=== PATIENT | male | born 1960 | race Caucasian/White ===

== ENCOUNTER 2017-01-22 17:01 | Emergency (ER) | payer SELFPAY ==
[2017-01-22 17:07] VITALS: BP 168/94; PULSE 94; TEMP 98.4; BMI 41.9
[2017-01-22] MEDS ORDERED: AMOX TR/POT CLAV 875MG/125MG TABLETS (FP) PO ONE (17:14)
--- NOTE | 2017-01-22 17:20 | PDOC ---
History of Present Illness - History of Present Illness Initial Comments: 01/22/17 17:25 56 y/o M with no PMHx presents to the ED with left sided tooth pain since yesterday. Patient states part of his tooth broke off while eating two weeks ago. He reports no associated pain until yesterday. He began to experience pain at the site of the tooth and the surrounding area. He states it is painful to touch and open his mouth. He took Advil with no relief. He denies fever or chills. Denies any other complaints. <Kayla Banuelos - Last Filed: 01/22/17 17:24> <Junaid Anguiano - Last Filed: 01/25/17 07:19> - General Chief Complaint: Pain, Acute Stated Complaint: RIGHT TOOTH PAIN Time Seen by Provider: 01/22/17 17:06 Past History <Kayla Banuelos - Last Filed: 01/22/17 17:24> - Past Medical History Diabetes: Yes - Surgical History Cholecystectomy: Yes - Psycho/Social/Smoking Cessation Hx Anxiety: No Suicidal Ideation: No Smoking History: Current every day smoker Have you smoked in the past 12 months: Yes Number of Cigarettes Smoked Daily: 20 Information on smoking cessation initiated: Yes 'Breaking Loose' booklet given: 01/22/17 Hx Alcohol Use: No Drug/Substance Use Hx: No Substance Use Type: None <Junaid Anguiano - Last Filed: 01/25/17 07:19> - Past Medical History Allergies/Adverse Reactions: Allergies Allergy/AdvReac Type Severity Reaction Status Date / Time codeine Allergy Verified 01/22/17 17:02 tramadol Allergy Verified 01/22/17 17:02 Home Medications: Ambulatory Orders Amoxicillin/Potassium Clav [Augmentin 875-125 Tablet] 1 each PO BID #20 tablet 01/22/17 Oxycodone HCl/Acetaminophen [Percocet 5-325 mg Tablet -] 1 combo PO Q6H PRN #10 tablet MDD 4 01/22/17 Review of Systems - Review of Systems Comments:: 01/22/17 17:25 CONSTITUTIONAL: No reported: Fever, Chills, Diaphoresis, Generalized Weakness, Malaise, Loss of Appetite HEENT: Present: left tooth pain No reported: Rhinorrhea, Nasal Congestion, Throat Pain, Throat Swelling, Difficulty Swallowing, Mouth Swelling, Ear Pain, Eye Pain, Visual Changes CARDIOVASCULAR: No reported: Chest Pain, Syncope, Palpitations, Irregular Heart Rate, Lightheadedness, Peripheral Edema RESPIRATORY: No reported: Cough, Shortness of Breath, SOB with Exertion, Orthopnea, Wheezing , Stridor, Hemoptysis GASTROINTESTINAL: No reported: Abdominal pain, Abdominal Distension, Nausea, Vomiting, Diarrhea, Constipation, Melena, Hematochezia GENITOURINARY: No reported: Dysuria, Frequency, Urgency, Hesitancy, Flank Pain, Genital Pain MUSCULOSKELETAL: No reported: Myalgia, Arthralgia, Joint Swelling, Back pain, Neck Pain SKIN: No reported: Rash, Itching, Pallor HEMATOLOGIC/IMMUNOLOGIC: No reported: Easy Bleeding, Easy Bruising, Lymphadenopathy, Frequent infections ENDOCRINE: No reported: Unexplained Weight Gain, Unexplained Weight Loss, Heat Intolerance , Cold Intolerance NEUROLOGIC: No reported: Headache, Focal Weakness, Paresthesias, Vertigo, Lightheadedness, Unsteady Gait, Seizure, Mental Status Changes, Incontinence PSYCHIATRIC: No reported: Anxiety, Depression <Kayla Banuelos - Last Filed: 01/22/17 17:24> *Physical Exam - Vital Signs Last Vital Signs Temp Pulse Resp BP Pulse Ox 98.4 F 94 H 18 168/94 96 01/22/17 17:02 01/22/17 17:02 01/22/17 17:02 01/22/17 17:02 01/22/17 17:02 <Kayla Banuelos - Last Filed: 01/22/17 17:24> - Vital Signs Last Vital Signs Temp Pulse Resp BP Pulse Ox 98.4 F 94 H 18 168/94 96 01/22/17 17:02 01/22/17 17:02 01/22/17 17:02 01/22/17 17:02 01/22/17 17:02 - Physical Exam Comments: 01/22/17 19:05 GENERAL: The patient is awake, alert, and fully oriented, Nontoxic - in no acute distress. HEAD: Normocephalic, atraumatic. EYES: extraocular movements intact, sclera anicteric, conjunctiva clear. ENT: Normal voice, Moist mucous membranes, no massess/erythema, +fractured R upper canine, no surrounding erythema, fluctuance, induration, no facial swelling. no ulcerations noted. NECK: Normal range of motion, supple, no cerfical lymphadenopathy <Junaid Anguiano - Last Filed: 01/25/17 07:19> Medical Decision Making - Medical Decision Making 01/22/17 17:18 56y M no pmhx presents with dental pain. Pt states he broke a tooth when eating a bagal, he was asypmtomatic until yesterday when he started to have pain in his mouth. Pt denies any fever/chills, swelling. on exam pt has poor dentition, but is in generally well appearing. he has a fractured canine, there is no erythema, induration, fluctuance notable to suggest abscess. will give pt augmentin, percocet and will refer pt to [facility]. return precautions were given for worsening symptoms including symptoms of absscess. I discussed the physical exam findings, ancillary test results and final diagnoses with the patient. I answered all of the patient's questions. The patient was satisfied with the care received and felt comfortable with the discharge plan and treatment plan. The patient will call their primary care physician within 24 hours to arrange follow-up and will return to the Emergency Department with any new, persistent or worsening symptoms. A portion of this note was documented by scribe services under my direction. I have reviewed the details of the note, within reason, and agree with the documentation with the following case summary and management plan written by me <Junaid Anguiano - Last Filed: 01/25/17 07:19> *DC/Admit/Observation/Transfer - Attestations Scribe Attestion: 01/22/17 17:25 Documentation prepared by Kayla Banuelos, acting as medical charge entry specialist for Junaid Anguiano MD. <Kayla Banuelos - Last Filed: 01/22/17 17:24> - Discharge Dispostion Admit: No <Junaid Anguiano - Last Filed: 01/25/17 07:19> Diagnosis at time of Disposition: Pain, dental Fractured tooth Qualifiers: Encounter type: initial encounter Fracture type: open Qualified Code(s): S02.5XXB - Fracture of tooth (traumatic), initial encounter for open fracture - Discharge Dispostion Disposition: HOME Condition at time of disposition: Stable - Prescriptions Prescriptions: Amoxicillin/Potassium Clav [Augmentin 875-125 Tablet] 1 each PO BID #20 tablet Oxycodone HCl/Acetaminophen [Percocet 5-325 mg Tablet -] 1 combo PO Q6H PRN #10 tablet MDD 4 PRN Reason: Pain - Referrals Referrals: Paresh Martin MD [Primary Care Provider] - Dental, Urgent Care [Other] - Patient Instructions Printed Discharge Instructions: DI for Fractured Tooth Additional Instructions: Return to the emergency department immediately with ANY new, persistent or worsening symptoms including fevers/chills, sever pain, or other concerns. You must see a dentist for definitive care of your tooth ache. You can proceede to Urgent Care Dental, it hsould still be open now. You MUST call and follow up with your doctor tomorrow for further evaluation of your symptoms. Results were discussed with you. Please make sure your doctor reviews the results of your emergency evaluation. Print Language: URDU
[2017-01-22] MEDS ORDERED: AMOX TR/POT CLAV 875MG/125MG TABLETS (FP) ONE (17:24)
== END 2017-01-22 17:29 | disposition home or self-care (01) ==
LOC: FER 17:01
DX: K08.89 Other specified disorders of teeth and supporting structures (principal); S02.5XXB Fracture of tooth (traumatic), initial encounter for open fracture; F17.210 Nicotine dependence, cigarettes, uncomplicated; E11.9 Type 2 diabetes mellitus without complications
CPT/HCPCS: 99282-25

== ENCOUNTER 2024-10-07 06:19 | Inpatient (IN) | payer OTHER ==
[2024-10-05 09:32] VITALS: BMI 35.5
[2024-10-07] MEDS ORDERED: HEPARIN NA (PORCINE) 5,000 UNITS/ML 1ML VIAL ONE ×2 (07:18→08:55)
[2024-10-07] MEDS ORDERED: LIDOCAINE HCL 1%, 10 MG/ML (20ML VIAL) ONE (07:18)
[2024-10-07] MEDS ORDERED: LIDOCAINE HCL/PF 2% SDV 5ML VIAL ONE (07:57)
[2024-10-07] MEDS ORDERED: SUCCINYLCHOLINE CHLORIDE 200 MG/10 ML SYRINGE ONE (07:58)
[2024-10-07] MEDS ORDERED: PROPOFOL 40 ML ONE (07:58)
[2024-10-07] MEDS ORDERED: MIDAZOLAM HCL 2 MG/2 ML SINGLE DOSE VIAL ONE (07:58)
[2024-10-07] MEDS ORDERED: ROCURONIUM BROMIDE 50 MG/5 ML SYRINGE ONE ×3 (07:58→10:08)
[2024-10-07] MEDS ORDERED: BENZOIN/ALOE VERA/STORAX/TOLU 58 ML BOTTLE ONE (08:21)
[2024-10-07] MEDS: ceFAZolin SODIUM 1 GM VIAL IVPB ONE (08:25)
[2024-10-07] MEDS ORDERED: SUGAMMADEX SODIUM 200 MG/2 ML VIAL ONE (10:09)
[2024-10-07] MEDS ORDERED: PROTAMINE SULFATE 50 MG/5 ML VIAL ONE (10:35)
[2024-10-07] MEDS ORDERED: ONDANSETRON 4 MG/2 ML VIAL ONE (10:57)
[2024-10-07] MEDS ORDERED: DEXAMETHASONE SOD PHOSPHATE 4 MG/1 ML VIAL ONE (10:57)
[2024-10-07] MEDS ORDERED: ONDANSETRON 4 MG/2 ML VIAL IVPUSH PRN (11:05)
[2024-10-07] MEDS: ALBUTEROL SO4 2.5/IPRATROPIUM 0.5 INH SOL 3 ML VIAL.NEB. NEB ONE (11:06)
[2024-10-07] MEDS: LACTATED RINGERS SOLUTION 1,000 ML IV SCH (15:03)
[2024-10-07 16:30] LABS: ABSOLUTE IMMATURE GRANULOCYTES 0.03 x10^3/uL (0.0-0.031); EOSINOPHIL % 0.1 % (0.8-7.0); EOSINOPHILS # 0.01 x10^3/uL (0.04-0.54); HEMATOCRIT 30.4 % (40.1-51.0); HEMOGLOBIN 9.6 g/dL (13.7-17.5); MCHC 31.6 g/dl (32.3-36.5); MEAN CELL VOLUME 94.4 fl (79.0-92.2); MEAN PLT VOLUME 11.2 fl (9.4-12.4); MONOCYTE # 0.19 x10^3/uL (0.30-0.82); MONOCYTE % 2.4 % (5.3-12.2); PLATELET COUNT 180 x10^3/uL (163-337)
[2024-10-07 16:42] LABS: POTASSIUM 3.9 mmol/L (3.5-5.1)
[2024-10-07 16:46] LABS: ALBUMIN 2.3 g/dl (3.4-5.0); CALCIUM 8.2 mg/dL (8.5-10.1)
[2024-10-07 16:47] LABS: BLOOD UREA NITROGEN 12.3 mg/dL (7-18); MAGNESIUM 1.4 mg/dL (1.8-2.4)
[2024-10-07 16:50] LABS: CREATININE 0.5 mg/dL (0.55-1.3)
[2024-10-07 16:51] LABS: BILIRUBIN,TOTAL 0.5 mg/dL (0.2-1); TOT PROT 5.2 g/dl (6.4-8.2)
[2024-10-07] MEDS ORDERED: MAGNESIUM SULF 50% (8.12 MEQ/2 ML-1 GM VIAL) ONE (18:31)
[2024-10-07] MEDS: MAGNESIUM SULF 50% (8.12 MEQ/2 ML-1 GM VIAL) IVPB ONE (18:43)
[2024-10-07] MEDS: INSULIN ASPART SLIDING SCALE (NOVOLOG) 1 VIAL SQ SCH (18:44)
[2024-10-07] MEDS: metFORMIN HCL 500 MG TABLET (FP) PO SCH (18:44)
[2024-10-07] MEDS: MUPIROCIN 2% TOPICAL OINTMENT FOR DECOLONIZATION NS SCH (21:26)
[2024-10-07] MEDS: CHLORHEXIDINE GLUCONATE 4% CLEANSER FOR DECOLONIZATION TP SCH (21:26)
[2024-10-07] MEDS: ATORVASTATIN CA 20 MG TABLET (FP) PO SCH (21:26)
[2024-10-07] MEDS: GABAPENTIN 100 MG CAPSULE PO SCH (21:26)
[2024-10-07] MEDS: CEFAZOLIN 2 GM/D5W 2 GM/50 ML ML IVPB SCH (21:27)
[2024-10-07] MEDS: ACETAMINOPHEN 325 MG TABLET (FP) PO PRN (21:37)
[2024-10-07] MEDS: oxyCODONE HCL 5 MG TABLET PO PRN (21:37)
[2024-10-08] MEDS: EMPAGLIFLOZIN (JARDIANCE) 25 MG TABLET PO SCH (06:17)
[2024-10-08 06:53] LABS: POTASSIUM 3.8 mmol/L (3.5-5.1)
[2024-10-08 06:55] LABS: ALBUMIN 1.9 g/dl (3.4-5.0); BLOOD UREA NITROGEN 7.6 mg/dL (7-18); CALCIUM 8.3 mg/dL (8.5-10.1); MAGNESIUM 1.5 mg/dL (1.8-2.4)
[2024-10-08 06:58] LABS: CREATININE 0.4 mg/dL (0.55-1.3); PHOSPHOROUS 2.4 mg/dL (2.5-4.9)
[2024-10-08 06:59] LABS: BILIRUBIN,TOTAL 0.4 mg/dL (0.2-1)
[2024-10-08] MEDS ORDERED: glipiZIDE-XL 10 MG TAB.ER.24 (FP) PO SCH (07:00)
[2024-10-08 07:01] LABS: TOT PROT 4.4 g/dl (6.4-8.2)
[2024-10-08 08:08] LABS: ABSOLUTE IMMATURE GRANULOCYTES 0.04 x10^3/uL (0.0-0.031); BASOPHILS # 0.02 x10^3/uL (0.01-0.08); EOSINOPHIL % 0.5 % (0.8-7.0); EOSINOPHILS # 0.05 x10^3/uL (0.04-0.54); HEMATOCRIT 28.1 % (40.1-51.0); MEAN CELL VOLUME 94.3 fl (79.0-92.2); MEAN PLT VOLUME 11.5 fl (9.4-12.4); MONOCYTE % 8.1 % (5.3-12.2); PLATELET COUNT 180 x10^3/uL (163-337); RDW 13.8 % (12.2-16.4)
[2024-10-08] MEDS: MAGNESIUM SULF 50% (8.12 MEQ/2 ML-1 GM VIAL) IVPB ONE (09:03)
[2024-10-08] MEDS: NAPH,MB-DB/K PH,MBDB POWDER PACKET PO ONE (09:03)
[2024-10-08] MEDS: PANTOPRAZOLE 40 MG TABLET PO SCH (09:03)
[2024-10-08] MEDS: ENOXAPARIN NA (PORCINE) 40 MG/0.4 ML DISP.SYRIN SQ SCH (09:05)
[2024-10-08 11:37] VITALS: PULSE 66; RESP 16; TEMP 97.8
[2024-10-08 13:11] VITALS: BP 130/85
== END 2024-10-08 12:30 | disposition home or self-care (01) | DRG 181 ==
LOC: J2C 06:19 → JICU 13:29
PROVIDERS: ADMIT Surgery; ATTEND Surgery
PROC: 047D341 Dilation of Left Common Iliac Artery with Drug-eluting Intraluminal Device, using Drug-Coated Balloon, Percutaneous Approach (ICD-10-PCS; 2024-10-07)
PROC: 04FD3ZZ Fragmentation of Left Common Iliac Artery, Percutaneous Approach (ICD-10-PCS; 2024-10-07)
PROC: 04FC3ZZ Fragmentation of Right Common Iliac Artery, Percutaneous Approach (ICD-10-PCS; 2024-10-07)
PROC: 047C341 Dilation of Right Common Iliac Artery with Drug-eluting Intraluminal Device, using Drug-Coated Balloon, Percutaneous Approach (ICD-10-PCS; principal; 2024-10-07 08:00)
DX: I77.9 Disorder of arteries and arterioles, unspecified (principal); I77.1 Stricture of artery; E11.621 Type 2 diabetes mellitus with foot ulcer; I74.5 Embolism and thrombosis of iliac artery; E11.51 Type 2 diabetes mellitus with diabetic peripheral angiopathy without gangrene; E78.5 Hyperlipidemia, unspecified; J44.9 Chronic obstructive pulmonary disease, unspecified; L89.623 Pressure ulcer of left heel, stage 3
CPT/HCPCS: 36415; 36430; 76000-TC-FY; 80053; 82962; 83735; 84100; 85025; 86900; 86922; 94010; 94640; 94760; C1760; C1769; C1894; J1644

== ENCOUNTER 2024-11-26 18:55 | Inpatient (IN) | payer OTHER ==
[2024-11-26] MEDS: LACTATED RINGERS SOLUTION 1000 ML INFUS.BAG IV ONE (19:50)
[2024-11-26] MEDS: ACETAMINOPHEN 1000 MG/100 ML BAG IVPB ONE (20:36)
[2024-11-26] MEDS ORDERED: ACETAMINOPHEN INJECTION 100 ML ONE (20:51)
[2024-11-26 20:59] LABS: ABSOLUTE IMMATURE GRANULOCYTES 0.34 x10^3/uL (0.0-0.031); BASOPHILS # 0.03 x10^3/uL (0.01-0.08); EOSINOPHIL % 0.0 % (0.8-7.0); EOSINOPHILS # 0.00 x10^3/uL (0.04-0.54); MCHC 31.6 g/dl (32.3-36.5); MEAN CELL VOLUME 91.8 fl (79.0-92.2); MEAN PLT VOLUME 11.0 fl (9.4-12.4); MONOCYTE # 1.56 x10^3/uL (0.30-0.82); MONOCYTE % 6.3 % (5.3-12.2); RDW 15.0 % (12.2-16.4)
[2024-11-26 21:08] LABS: INR 1.11 (0.83-1.09); PROTHROMBIN TIME (PATIENT) 12.2 SEC (9.7-13.0)
[2024-11-26 21:11] LABS: ACTIVATED PTT 30.4 SECONDS (25.2-36.5)
[2024-11-26 21:17] LABS: BG HCT 36.0 % (35.4-49); VENOUS BASE EXCESS 1.2 mmol/L (-2-2); VENOUS O2 SATURATION 33.2 % (70-80); VENOUS PCO2 48.4 mmHg (38-52); VENOUS PH 7.366 (7.310-7.410)
[2024-11-26] MEDS: PIPERACILLIN/TAZOB 4.5 GM 4.5 GM in DEXTROSE 5%-WATER 100 ML IVPB ONE (21:30)
[2024-11-26 21:43] LABS: CO2 27.0 mmol/L (21-32)
[2024-11-26 21:44] LABS: GLUCOSE,RANDOM 90.0 mg/dL (74-106)
[2024-11-26 21:47] LABS: CREATININE 0.9 mg/dL (0.55-1.3); SGOT/AST 28.0 U/L (15-37); SGPT/ALT 32.0 U/L (13-61)
[2024-11-26 21:48] LABS: TOT PROT 6.5 g/dl (6.4-8.2)
[2024-11-26 21:49] LABS: ALK PHOS 139.0 U/L (45-117)
[2024-11-26] MEDS ORDERED: PIPERACILLIN/TAZOB 4.5 GM 4.5 GM/100 ML BAG IVPB ONE (22:17)
[2024-11-26] MEDS: VANCOMYCIN 1,000 MG in DEXTROSE 5%-WATER - 250 ML IVPB ONE (22:43)
[2024-11-26] MEDS ORDERED: VANCOMYCIN 1 GM PREMIX (F) 1 GM/200 ML BAG ONE (22:44)
[2024-11-26] MEDS: HALOPERIDOL LACTATE 5 MG/ML IM ONE (23:18)
[2024-11-26] MEDS ORDERED: NICOTINE 14 MG/24 HOURS TOPICAL PATCH TD ONE (23:19)
[2024-11-26] MEDS ORDERED: HALOPERIDOL LACTATE 5 MG/ML ONE (23:19)
[2024-11-26] MEDS: NICOTINE 14 MG/24 HOURS TOPICAL PATCH TD SCH (23:44)
[2024-11-27 00:06] LABS: URINE APPEARANCE CLEAR; URINE BILIRUBIN NEGATIVE (NEGATIVE); URINE COLOR YELLOW; URINE GLUCOSE (UA) 500 mg/dl (NEGATIVE); URINE KETONE NEGATIVE (NEGATIVE); URINE LEUK ESTERASE NEGATIVE (NEGATIVE); URINE NITRITE NEGATIVE (NEGATIVE); URINE PROTEIN 300 (NEGATIVE); URINE UROBILINOGEN 1.0 mg/dL (0.2-1.0)
[2024-11-27] MEDS: VANCOMYCIN 1 GM PREMIX (F) 1 GM/200 ML BAG IVPB SCH (04:22)
[2024-11-27] MEDS ORDERED: ATORVASTATIN CA 20 MG TABLET (FP) ONE (09:31)
[2024-11-27] MEDS ORDERED: NICOTINE 14 MG/24 HOURS TOPICAL PATCH TD ONE (09:32)
[2024-11-27] MEDS ORDERED: ENOXAPARIN NA (PORCINE) 40 MG/0.4 ML DISP.SYRIN SQ ONE (09:32)
[2024-11-27] MEDS ORDERED: ASPIRIN COATED 81 MG TABLET.EC ONE (09:32)
[2024-11-27] MEDS: ENOXAPARIN NA (PORCINE) 40 MG/0.4 ML DISP.SYRIN SQ SCH (09:57)
[2024-11-27] MEDS: ATORVASTATIN CA 20 MG TABLET (FP) PO SCH (09:57)
[2024-11-27] MEDS: EMPAGLIFLOZIN (JARDIANCE) 25 MG TABLET PO SCH (09:57)
[2024-11-27] MEDS: ASPIRIN COATED 81 MG TABLET.EC PO SCH (09:57)
[2024-11-27] MEDS: AMPICILLIN NA/SULBACTAM NA 3 GM in SODIUM CHLORIDE 100 ML IVPB SCH (11:26)
[2024-11-27] MEDS: VANCOMYCIN/WATER 1250 MG 1,250 MG/250 ML BAG IVPB SCH (11:26)
[2024-11-27] MEDS: CLOPIDOGREL BISULFATE 75 MG TABLET (FP) PO SCH (11:27)
[2024-11-27] MEDS ORDERED: AMPICILLIN NA/SULBACTAM NA 3 GM VIAL ONE (15:12)
[2024-11-27 15:41] VITALS: BMI 38.8
[2024-11-28 01:46] VITALS: RESP 18
[2024-11-28] MEDS: ACETAMINOPHEN 1000 MG/100 ML BAG IVPB ONE (02:28)
[2024-11-28] MEDS: EMPAGLIFLOZIN (JARDIANCE) 25 MG TABLET PO SCH (06:44)
[2024-11-28] MEDS ORDERED: AMPICILLIN NA/SULBACTAM NA 3 GM VIAL ONE (07:52)
[2024-11-28 09:40] LABS: MCHC 32.1 g/dl (32.3-36.5); MEAN CELL VOLUME 92.5 fl (79.0-92.2); MEAN PLT VOLUME 11.4 fl (9.4-12.4); RDW 15.4 % (12.2-16.4)
[2024-11-28 10:06] VITALS: BP 96/48; PULSE 62; TEMP 97.7
[2024-11-28 10:24] LABS: GLUCOSE,RANDOM 70.0 mg/dL (74-106)
[2024-11-28 10:25] LABS: CO2 24.0 mmol/L (21-32)
[2024-11-28 10:27] LABS: CREATININE 0.7 mg/dL (0.55-1.3); SGOT/AST 36.0 U/L (15-37); SGPT/ALT 38.0 U/L (13-61)
[2024-11-28 10:29] LABS: TOT PROT 5.6 g/dl (6.4-8.2)
[2024-11-28 10:32] LABS: ALK PHOS 200.0 U/L (45-117)
[2024-11-28 13:08] LABS: HCV DIAGNOSTIC IN-HOUSE W/RFLX NON-REACTIVE (NONREACTIVE)
[2024-11-28 13:09] LABS: HIV INTERPRETATION NEGATIVE (NEGATIVE)
[2024-11-29] MEDS ORDERED: VANCOMYCIN 1 GM PREMIX (F) 1 GM/200 ML BAG IVPB SCH (23:00)
== END 2024-11-28 10:45 | disposition left against medical advice (07) | DRG 720 ==
LOC: JER 18:55 → JERBED 11-27 03:04 → J5S 11-27 11:10
PROVIDERS: ADMIT Student in an Organized Health Care Education/Training Program; ATTEND Internal Medicine
DX: A41.89 Other specified sepsis (principal); E11.51 Type 2 diabetes mellitus with diabetic peripheral angiopathy without gangrene; E11.621 Type 2 diabetes mellitus with foot ulcer; L97.419 Non-pressure chronic ulcer of right heel and midfoot with unspecified severity; L97.429 Non-pressure chronic ulcer of left heel and midfoot with unspecified severity; G92.8 Other toxic encephalopathy; E86.0 Dehydration; J44.9 Chronic obstructive pulmonary disease, unspecified; D72.829 Elevated white blood cell count, unspecified; R00.0 Tachycardia, unspecified; L03.116 Cellulitis of left lower limb; R61 Generalized hyperhidrosis; R41.82 Altered mental status, unspecified; R09.89 Other specified symptoms and signs involving the circulatory and respiratory systems; R50.9 Fever, unspecified; E66.9 Obesity, unspecified; Z68.30 Body mass index [BMI] 30.0-30.9, adult
CPT/HCPCS: 36415; 70450-TC; 71045-TC-FY; 73590-TC-LT-FY; 73610-TC-LT-FY; 73630-TC-LT; 74177-TC; 80053; 81003; 82803; 82962; 83605; 84484; 85025; 85610; 85730; 86803; 86850; 86900; 86901; 87040; 87086; 87389; 87637-QW; 93005; 93010; 93970-TC; 99285-25; G0277; Q9967